=== PATIENT | female | born 1960 | race Caucasian/White ===

== ENCOUNTER → 2016-10-21 | Outpatient (CLI) | payer MEDICARE, MEDICAID ==
[~2016-10-21] MED LIST: APAP/BUTALBITAL1 TA1 PO; BENTYL20 MG PO; CITALOPRAM HYDR40 MG PO; FAMOTIDINE 20MG20 MG PO; FLEXERIL10 MG PO; FOLIC ACID 1MG T1 MG PO; HYDROXYZINE 25M25 MG PO; IPRATROPIUM BROM3 M2 IH; JANUMET PO; KEFLEX 500MG.500 MG PO; KLONOPIN 0.5MG0.5 MG PO; LEVAQUIN500 MG PO; LORTAB 5/500 501 TAB PO; LORTAB 500 MG-71 TAB PO; MEDROL 4MG. DOSE4 MG PO; NORCO1 TAB PO; OMEPRAZOLE40 MG PO; OPTIMUM VITAMIN1 TAB PO; PEPCID 20MG TAB20 MG PO; PHENERGAN 25MG.25 M1 PO; PHENERGAN50 M1 PO; PREDNISONE 20MG20 MG PO; PRILOSEC OTC20 MG PO; RESTORIL 30MG C30 MG PO; TESSALON PERLE100 MG PO; VICODIN ES 7.51 EACH PO; VITAMIN D31000 IU PO; XANAX XR2 MG PO; ZESTRIL5 MG PO; ZITHROMAX1 GM/PACKE PO; ZOLOFT100 MG PO
[2016-10-21 12:01] LABS: AMPHETAMINES/METAMPHETAMINES NEGATIVE ng/mL (<1000)
== END ==
LOC: LAB 11:22
PROVIDERS: Emergency Medicine
DX: Z79.899 Other long term (current) drug therapy (principal)

== ENCOUNTER → 2017-02-06 | Outpatient (CLI) | payer MEDICARE, MEDICAID ==
[2017-02-06 19:04] LABS: AMPHETAMINES/METAMPHETAMINES NEGATIVE ng/mL (<1000)
== END ==
LOC: LAB 16:12
PROVIDERS: Emergency Medicine
DX: Z79.899 Other long term (current) drug therapy (principal)

== ENCOUNTER → 2017-03-06 | Outpatient (CLI) | payer MEDICARE, MEDICAID ==
[2017-03-06 13:24] LABS: AMPHETAMINES/METAMPHETAMINES NEGATIVE ng/mL (<1000)
== END ==
LOC: LAB 12:10
PROVIDERS: Emergency Medicine
DX: Z79.899 Other long term (current) drug therapy (principal)

== ENCOUNTER → 2017-04-03 | Outpatient (CLI) | payer MEDICARE, MEDICAID ==
[2017-04-03 12:02] LABS: AMPHETAMINES/METAMPHETAMINES NEGATIVE ng/mL (<1000)
[2017-04-13 07:37] LABS: Alprazolam Negative (Cutoff=100); Benzodiazepines Positive ng/mL (Cutoff=100); Clonazepam Negative (Cutoff=100); Flurazepam Negative (Cutoff=100); Lorazepam Negative (Cutoff=100); Midazolam Negative (Cutoff=100); Temazepam Positive (.); Triazolam Negative (Cutoff=100)
== END ==
LOC: LAB 11:26
PROVIDERS: Emergency Medicine
DX: Z79.899 Other long term (current) drug therapy (principal); R89.2 Abnormal level of other drugs, medicaments and biological substances in specimens from other organs, systems and tissues
CPT/HCPCS: G0480

== ENCOUNTER → 2017-05-01 | Outpatient (CLI) | payer MEDICARE, MEDICAID ==
[2017-05-01 19:06] LABS: BUN 17 mg/dL (7-18)
[2017-05-01 19:07] LABS: GFR (ESTIMATED) 64 ML/MIN (59-)
[2017-05-01 19:12] LABS: AMPHETAMINES/METAMPHETAMINES NEGATIVE ng/mL (<1000)
== END ==
LOC: LAB 17:16
PROVIDERS: Emergency Medicine
DX: E11.9 Type 2 diabetes mellitus without complications (principal); R53.83 Other fatigue; Z79.899 Other long term (current) drug therapy